=== PATIENT | female | born 1965 | race Caucasian/White ===

== ENCOUNTER → 2021-08-22 | Outpatient (REF) ==
--- NOTE | 2021-08-22 14:17 | REP ---
INDICATION: PAIN. COMPARISON: None. TECHNIQUE: Three views of the right shoulder were performed. FINDINGS: The acromioclavicular and glenohumeral relationships are within normal limits. There is no acute fracture or destructive osseous lesion. IMPRESSION: Within normal limits <Electronically signed by Pedro Do > 08/22/21 [id number]
--- NOTE | 2021-08-22 14:18 | REP ---
INDICATION: PAIN. COMPARISON: None TECHNIQUE: AP and lateral views FINDINGS: Vertebral body height and alignment is within normal limits. The pedicles are intact bilaterally. The disc spaces are symmetric and relatively well maintained throughout. There is minimal degenerative facet joint change seen at L4-5 and L5-S1. IMPRESSION: Within normal limits <Electronically signed by Pedro Do > 08/22/21 [id number]
== END ==
LOC: M PLAIMG 13:15
PROVIDERS: ATTEND Internal Medicine
DX: M25.511 Pain in right shoulder (principal); M54.50 Low back pain, unspecified